=== PATIENT | female | born 2000 | race Caucasian/White ===

== ENCOUNTER 2021-01-28 18:00 | Emergency (ER) | payer BC ==
--- NOTE | 2021-01-28 18:35 | EDM.PDOC ---
ED HPI GENERAL MEDICAL PROBLEM - General Chief Complaint: Trauma Stated Complaint: [facility] Time Seen by Provider: 01/28/21 18:13 - History of Present Illness INITIAL COMMENTS - FREE TEXT/NARRATIVE: Patient arrived to ED via ambulance She fell from a roping horse while practicing She landed on the right side and struck her head Reports occurrence of dizziness but denies loss of consciousness She was immobilized per EMS pre-hospital with cervical collar and backboard EMS reports patient hyperventilating pre-hospital with secondary carpal spasm Had single episode of vomiting upon ambulance arrived to ED, then felt better Denies persisting nausea now Complains of feeling tired Has pain to the right shoulder area, severity 6-7/10 Complains of headache severity 5/10 Denies neck or back pain Denies extremity weakness or paresthesias Review of Systems Constitutional - no fever Eyes - no eye pain; no visual disturbance ENT - no rhinorrhea; no congestion; no epistaxis Cardiovascular - no chest pain Respiratory - no shortness of breath; no cough Gastrointestinal - no abdominal pain; nausea; vomiting; no diarrhea Genitourinary - no dysuria Musculoskeletal - no neck pain; no back pain; right shoulder injury Neurological - headache; no speech disturbance; no weakness; dizziness - Related Data Allergies Allergy/AdvReac Type Severity Reaction Status Date / Time amoxicillin Allergy Rash Verified 01/28/21 18:13 Home Meds: Home Meds . [No Known Home Meds] 01/28/21 [History] Past Medical History - Past Health History Medical/Surgical History: Denies Medical/Surgical History Review of Systems - Review of Systems Review Of Systems: See Below (see HPI) ED EXAM, GENERAL - Physical Exam Exam: See Below Free Text/Narrative:: Constitutional - awake; alert; no acute distress; supine on backboard Head - no facial swelling or weakness; no scalp injury Eyes - extra ocular motion intact; conjunctiva normal; pupils equal and reactive to light ENT - no nasal deformity; no epistaxis; normal phonation; mucus membranes moist; Neck - no swelling; cervical collar in place Respiratory - normal respiratory effort; no crackles or wheezing; no stridor; mild tenderness on sternal palpation Cardiovascular - regular rhythm; normal rate; S1; S2; grade 1/6 systolic murmur GI/Abdomen - normal bowel sounds; soft; no tenderness; no rebound; no guarding; no mass Musculoskeletal - normal strength and motion all extremities; no swelling or deformity; no thoracic or lumbar vertebral tenderness; pelvis stable Skin - warm; dry Neurologic - normal speech; no weakness Psychiatric - normal mood and affect; memory and attention normal Course - Vital Signs Text/Narrative:: . Considered etiologies included: fall, contusion, shoulder injury, blunt thoracic trauma, blunt abdominal trauma, closed head injury, concussion, intracranial injury Trauma alert was activated prior to EMS arrival Patient was evaluated upon arrival to ED She was cleared from backboard by log-roll maneuver during initial evaluation She was cleared from cervical collar in accordance with NEXUS criteria Symptoms and examination were discussed CXR was obtained for further investigation Limited lab studies were obtained Consideration for CT head was discussed and deferred at initial evaluation FAST exam was performed by senior copywriter and showed no peritoneal fluid Analgesic treatment was declined Snap Shearer was subsequently advised by RN that patient had another vomiting episode and had some amnesia Upon re-evaluation by senior copywriter, mother of patient reported that witnesses at scene reported loss of consciousness by patient Patient had also forgotten being assisted by RN for removal of shirt and placement of gown upon ED arrival, thought her shirt had been cut off Decision was made to proceed with CT head Results were unremarkable for serious or significant abnormality Ibuprofen was given for analgesic treatment Symptomatic treatment was discussed Concussion precautions and activity restriction was reviewed Patient was felt to be stable for outpatient follow-up Return precautions were provided Last Recorded V/S: Last Vital Signs Temp 36.5 C 01/28/21 21:15 Pulse 72 01/28/21 21:15 Resp 18 01/28/21 21:15 BP 128/79 01/28/21 21:15 Pulse Ox 99 01/28/21 21:15 - Orders/Labs/Meds Labs: Laboratory Tests 01/28/21 01/28/21 Range/Units 19:05 19:07 WBC 14.12 H (3.98-10.04) K/mm3 RBC 4.31 (3.98-5.22) M/mm3 Hgb 13.1 (11.2-15.7) gm/dl Hct 37.9 (34.1-44.9) % MCV 87.9 (79.4-94.8) fl MCH 30.4 (25.6-32.2) pg MCHC 34.6 (32.2-35.5) g/dl RDW Std Deviation 38.8 (36.4-46.3) fL Plt Count 253 (182-369) K/mm3 MPV 9.5 (9.4-12.3) fl Neut % (Auto) 80.4 H (34.0-71.1) % Lymph % (Auto) 12.3 L (19.3-51.7) % [place] % (Auto) 6.2 (4.7-12.5) % Eos % (Auto) 0.8 (0.7-5.8) Baso % (Auto) 0.1 (0.1-1.2) % Neut # (Auto) 11.34 H (1.56-6.13) K/mm3 Lymph # (Auto) 1.74 (1.18-3.74) K/mm3 [place] # (Auto) 0.88 H (0.24-0.36) K/mm3 Eos # (Auto) 0.11 (0.04-0.36) K/mm3 Baso # (Auto) 0.02 (0.01-0.08) K/mm3 Urine Color Yellow (Yellow) Urine Appearance Clear (Clear) Urine pH 6.5 (5.0-8.0) Ur Specific [place] > or = 1.030 (1.005-1.030) Urine Protein Negative (Negative) Urine Glucose (UA) Negative (Negative) Urine Ketones Negative (Negative) Urine Occult Blood Negative (Negative) Urine Nitrite Negative (Negative) Urine Bilirubin Negative (Negative) Urine Urobilinogen 0.2 (0.2-1.0) Ur Leukocyte Esterase Negative (Negative) Urine RBC 0-5 (0-5) /hpf Urine WBC 0-5 (0-5) /hpf Ur Squamous Epith Cells 0-5 (0-5) /hpf Urine Bacteria Moderate H (FEW) /hpf Urine Mucus Few (FEW) /hpf Meds: Medications Discontinued Medications Generic Name Dose Route Start Last Admin Trade Name Freq PRN Reason Stop Dose Admin Ibuprofen 600 mg 01/28/21 20:47 01/28/21 20:56 Ibuprofen Susp 100 Mg/5 Ml 5 Ml Ud Cup PO 01/28/21 20:48 600 mg ONETIME ONE Administration - Radiology Interpretation Free Text/Narrative:: XR chest, PA & lateral, radiology interpretation: 1. Mild scoliosis 2. Nothing acute is seen on 2 view chest x-ray CT head, non-contrast, radiology interpretation: 1. Nothing acute is appreciated on noncontrast head CT exam Departure - Departure Time of Disposition: 20:53 Disposition: Home, Self-Care 01 Clinical Impression: Closed head injury with concussion, Fall from horse - Discharge Information *PRESCRIPTION DRUG MONITORING PROGRAM REVIEWED*: Not Applicable *COPY OF PRESCRIPTION DRUG MONITORING REPORT IN PATIENT EMELI: Not Applicable Instructions: Concussion, Adult, Returning to Sports and Activities After a Concussion, Adult Referrals: Emily Ramon NP [Primary Care Provider] - Forms: ED Department Discharge Additional Instructions: Return if condition worsens May resume light activity and regular diet as tolerated Avoid impact-prone or strenuous activity for at least 1 week after all symptoms have resolved May use ACETAMINOPHEN every 4 hours and/IBUPROFEN every 6 hours as needed for pain Follow-up with primary care provider is recommended in 5-7 days Sepsis Event Note (ED) - Focused Exam Vital Signs: Vital Signs Temp Pulse Resp BP Pulse Ox 01/28/21 21:15 36.5 C 72 18 128/79 99 01/28/21 18:14 36.2 C 76 18 124/84 97
--- NOTE | 2021-01-28 19:21 | CR ---
Chest: 2 views of the chest were obtained. Comparison: No prior chest imaging is available. Heart size and mediastinum are normal. Lungs are clear with no acute parenchymal change. Mild scoliosis is noted within the spine. Impression: 1. Mild scoliosis. 2. Nothing acute is seen on 2 view chest x-ray. Diagnostic code #2
--- NOTE | 2021-01-28 19:35 | CT ---
Head CT Technique: Multiple axial sections through the brain were obtained. Intravenous contrast was not utilized. Reconstructed coronal and sagittal images were obtained. Comparison: No prior intracranial imaging is available. Findings: Ventricles along with basal cisterns and sulci over the convexities are within normal limits for the patient's age. No abnormal parenchymal densities are seen. No evidence of intracranial hemorrhage is seen. No midline shift or mass-effect is seen. Bone window settings were reviewed. Visualized mastoid sinuses and paranasal sinuses show nothing acute. No acute calvarial abnormality is appreciated. Impression: 1. Nothing acute is appreciated on noncontrast head CT exam. Diagnostic code #1
[2021-01-28] MEDS ORDERED: Ibuprofen Susp 100 MG/5 ML 5 ML UD Cup PO ONE (20:47)
[2021-01-28 22:41] VITALS: BP 128/79; PULSE 72
== END 2021-01-28 21:16 | disposition home or self-care (01) ==
LOC: JD.ED 18:00 → SUPCPDRO 18:00 → JD.ED 21:16
DX: S06.0X0A Concussion without loss of consciousness, initial encounter (principal); Z88.0 Allergy status to penicillin; V80.010A Animal-rider injured by fall from or being thrown from horse in noncollision accident, initial encounter; Y93.52 Activity, horseback riding
CPT/HCPCS: 36415; 70450; 71046; 81001; 85025; 99284; A9270; 99283